=== PATIENT | female | born 1955 | race Caucasian/White ===

== ENCOUNTER 2020-11-02 15:35 | Emergency (ER) | payer MEDICARE, OTHER ==
[2020-11-02 17:48] LABS: BASOPHIL 0.4 % (0-2); EOSINOPHIL 0.5 % (0-7); HCT 45.7 % (37.0-47.0); HGB 15.4 g/dl (12.5-16.0); LYMPHOCYTE 16.7 % (15-48); MCH 28.4 pg (25.0-31.0); MCHC 33.7 g/dL (32.0-36.0); MCV 84.3 fL (78.0-100.0); MONOCYTE 10.3 % (0-12); MPV 9.4 fL (6.0-9.5); NEUTROPHIL 71.8 % (41-80); NRBC 0; PLT 297 K/uL (150-400); RBC 5.42 M/uL (4.20-5.40); RDW 13.5 % (11.5-14.0)
[2020-11-02 18:10] LABS: ALBUMIN 3.4 g/dL (3.4-5.0); BILIRUBIN - TOTAL 0.6 mg/dL (0.2-1.0); BUN/CREAT RATIO (CALC) 13.1 RATIO; CREATININE 1.07 mg/dL (0.51-0.95); GLOBULIN (CALCULATION) 3.7 g/dL; POTASSIUM 3.1 mmol/L (3.5-5.1); TOTAL PROTEIN 7.1 g/dL (6.4-8.2)
[2020-11-02 19:30] LABS: BILIRUBIN NEGATIVE (NEGATIVE); BLOOD TRACE-INTACT Ery/uL (NEGATIVE); CLARITY CLEAR (CLEAR); COLOR YELLOW (YELLOW); GLUCOSE (U) NORMAL (NORMAL); LEUKOCYTES NEGATIVE Leu/uL (NEGATIVE); NITRITE NEGATIVE (NEGATIVE); PROTEIN NEGATIVE (NEGATIVE); UROBILINOGEN 0.2 mg/dL (0.2-1.0); pH 5.5 (5.0-9.0)
[2020-11-02 19:34] LABS: BACTERIA TRACE
== END 2020-11-02 19:59 | disposition home or self-care (01) ==
LOC: FER 15:35
PROVIDERS: Nurse Practitioner Family
DX: R10.32 Left lower quadrant pain (principal); E86.0 Dehydration; E87.6 Hypokalemia; R11.0 Nausea; I10 Essential (primary) hypertension; Z88.0 Allergy status to penicillin; Z79.899 Other long term (current) drug therapy
CPT/HCPCS: 36415; 80053; 81001; 85025; 99284; J7030

== ENCOUNTER 2020-12-20 09:45 | Inpatient (IN) | payer MEDICARE, OTHER ==
[~2020-12-20] VITALS: Ht 152.4 cm; Wt 94.6 kg
[2020-12-20 11:30] LABS: BASOPHIL 0.7 % (0-2); EOSINOPHIL 0.7 % (0-7); HCT 44.2 % (37.0-47.0); HGB 14.6 g/dl (12.5-16.0); LYMPHOCYTE 38.1 % (15-48); MCH 27.5 pg (25.0-31.0); MCV 83.4 fL (78.0-100.0); MONOCYTE 9.3 % (0-12); MPV 9.7 fL (6.0-9.5); NEUTROPHIL 50.2 % (41-80); NRBC 0; PLT 278 K/uL (150-400)
[2020-12-20 11:37] LABS: WBC 2.9 K/uL (4.0-10.5)
[2020-12-20 11:46] LABS: ALBUMIN 2.9 g/dL (3.4-5.0); BILIRUBIN - TOTAL 0.6 mg/dL (0.2-1.0); BUN/CREAT RATIO (CALC) 18.1 RATIO; CREATININE 1.05 mg/dL (0.51-0.95); GLOBULIN (CALCULATION) 3.5 g/dL; POTASSIUM 4.5 mmol/L (3.5-5.1); TOTAL PROTEIN 6.4 g/dL (6.4-8.2)
[2020-12-20 11:53] LABS: PRO-BNP 100 pg/mL (<125)
[2020-12-20] MEDS ORDERED: NORVASC5 MG PO (15:40)
[2020-12-20] MEDS ORDERED: HCTZ25 MG PO (15:41)
[2020-12-20] MEDS ORDERED: CELEBREX **OUT100 MG PO (15:41)
--- NOTE | 2020-12-20 21:26 | NUR ---
PT HAD RUN OF [facility], ASHKAN HARRISON NOTIFIED. WANTS TO MONITOR PATIENT
[2020-12-21 05:46] LABS: BASOPHIL 0.7 % (0-2); EOSINOPHIL 0 % (0-7); HCT 42.4 % (37.0-47.0); HGB 14.1 g/dl (12.5-16.0); LYMPHOCYTE 42.7 % (15-48); MCH 27.3 pg (25.0-31.0); MCHC 33.3 g/dL (32.0-36.0); MCV 82.2 fL (78.0-100.0); MONOCYTE 4.2 % (0-12); MPV 9.8 fL (6.0-9.5); NEUTROPHIL 50.7 % (41-80); NRBC 0; PLT 292 K/uL (150-400); RBC 5.16 M/uL (4.20-5.40); RDW 13.7 % (11.5-14.0)
[2020-12-21 05:50] LABS: WBC 2.9 K/uL (4.0-10.5)
[2020-12-21 06:31] LABS: BUN/CREAT RATIO (CALC) 24.2 RATIO; C-REACTIVE PROTEIN 7.2 mg/dL (<=0.90); CREATININE 0.91 mg/dL (0.51-0.95); POTASSIUM 4.1 mmol/L (3.5-5.1)
[2020-12-22 05:51] LABS: BASOPHIL 0.2 % (0-2); EOSINOPHIL 0 % (0-7); HCT 39.8 % (37.0-47.0); HGB 13.4 g/dl (12.5-16.0); LYMPHOCYTE 26.5 % (15-48); MCH 27.7 pg (25.0-31.0); MCHC 33.7 g/dL (32.0-36.0); MCV 82.4 fL (78.0-100.0); MONOCYTE 6.7 % (0-12); MPV 9.8 fL (6.0-9.5); NEUTROPHIL 65.3 % (41-80); NRBC 0; PLT 364 K/uL (150-400); RBC 4.83 M/uL (4.20-5.40)
[2020-12-22 06:18] LABS: BUN/CREAT RATIO (CALC) 31.3 RATIO; CREATININE 0.99 mg/dL (0.51-0.95); MAGNESIUM 2.2 mg/dL (1.8-2.4); PHOSPHORUS 3.4 mg/dL (2.6-4.7); POTASSIUM 4.3 mmol/L (3.5-5.1)
[2020-12-23 06:58] LABS: BASOPHIL 0.2 % (0-2); EOSINOPHIL 0 % (0-7); HCT 40.1 % (37.0-47.0); HGB 13.2 g/dl (12.5-16.0); MCH 27.2 pg (25.0-31.0); MCHC 32.9 g/dL (32.0-36.0); MCV 82.5 fL (78.0-100.0); MONOCYTE 6.2 % (0-12); MPV 9.8 fL (6.0-9.5); NEUTROPHIL 70.8 % (41-80); NRBC 0; PLT 369 K/uL (150-400); RBC 4.86 M/uL (4.20-5.40); RDW 13.8 % (11.5-14.0); WBC 12.1 K/uL (4.0-10.5)
[2020-12-23 07:03] LABS: LYMPHOCYTE 21.1 % (15-48)
[2020-12-23 07:06] LABS: BUN/CREAT RATIO (CALC) 32.2 RATIO; C-REACTIVE PROTEIN 1.7 mg/dL (<=0.90); CREATININE 0.9 mg/dL (0.51-0.95); POTASSIUM 4.2 mmol/L (3.5-5.1)
[2020-12-23] MEDS ORDERED: DEXAMETHASONE 2M2 MG PO (12:48)
--- NOTE | 2020-12-23 13:19 | NUR ---
12/23/20 Ms. Harding lives at home with her daughter. She was independent in the home and community prior to illness. She is being discharged today. Referrals have been made to [facility] for [facility] and [facility] per patient's choice. Report given to MS Lisandra RN.
== END 2020-12-23 14:59 | disposition home health service (06) | DRG 871 ==
LOC: FER 09:45 → FMS 14:32
PROVIDERS: Emergency Medicine; ADMIT Internal Medicine
PROC: XW033E5 Introduction of Remdesivir Anti-infective into Peripheral Vein, Percutaneous Approach, New Technology Group 5 (ICD-10-PCS; principal; 2020-12-20)
PROC: XW0DXM6 Introduction of Baricitinib into Mouth and Pharynx, External Approach, New Technology Group 6 (ICD-10-PCS; 2020-12-20)
DX: A41.89 Other specified sepsis (principal); U07.1 COVID-19; J96.01 Acute respiratory failure with hypoxia; J12.82 Pneumonia due to coronavirus disease 2019; Z68.41 Body mass index [BMI] 40.0-44.9, adult; R65.20 Severe sepsis without septic shock; I10 Essential (primary) hypertension; E66.9 Obesity, unspecified; Z88.0 Allergy status to penicillin; Z86.19 Personal history of other infectious and parasitic diseases; Z90.89 Acquired absence of other organs; Z98.890 Other specified postprocedural states; Z83.6 Family history of other diseases of the respiratory system; Z82.49 Family history of ischemic heart disease and other diseases of the circulatory system
CPT/HCPCS: 36415; 36600; 71045; 71275; 80048; 80053; 82728; 82803; 83605; 83615; 83735; 83880; 84100; 84145; 84484; 85025; 85379; 86140; 93005; 94010; 94640; C9399; J1100; J1650; J7030; J7050; Q9967

== ENCOUNTER 2021-09-01 17:54 | Emergency (ER) | payer OTHER, MEDICARE ==
[~2021-09-01 17:54] MED LIST: CELEBREX **OUT100 MG PO; DEXAMETHASONE 2M2 MG PO; HCTZ25 MG PO; NORVASC5 MG PO
[2021-09-01 18:36] LABS: BASOPHIL 0.7 % (0-2); HCT 43.5 % (37.0-47.0); HGB 14.5 g/dl (12.5-16.0); LYMPHOCYTE 24.4 % (15-48); MCH 27.8 pg (25.0-31.0); MCHC 33.3 g/dL (32.0-36.0); MCV 83.5 fL (78.0-100.0); MONOCYTE 5.7 % (0-12); MPV 9.7 fL (6.0-9.5); NEUTROPHIL 65.5 % (41-80); NRBC 0; PLT 285 K/uL (150-400); RBC 5.21 M/uL (4.20-5.40); RDW 13.6 % (11.5-14.0); WBC 9.5 K/uL (4.0-10.5)
[2021-09-01 18:51] LABS: BUN/CREAT RATIO (CALC) 13.7 RATIO; CREATININE 0.73 mg/dL (0.51-0.95); POTASSIUM 4.1 mmol/L (3.5-5.1)
[2021-09-01 19:36] LABS: ALT 32 U/L (14-59); AST 47 U/L (15-37); LIPASE 49 U/L (73-393)
[2021-09-02] MEDS ORDERED: NORCO 5-325 TA1 EACH PO (01:43)
== END 2021-09-02 02:22 | disposition home or self-care (01) ==
LOC: FER 17:54
PROVIDERS: Emergency Medicine
DX: S20.211A Contusion of right front wall of thorax, initial encounter (principal); S80.02XA Contusion of left knee, initial encounter; I10 Essential (primary) hypertension; Z88.0 Allergy status to penicillin; Z88.1 Allergy status to other antibiotic agents; V49.40XA Driver injured in collision with unspecified motor vehicles in traffic accident, initial encounter; Z28.310 Unvaccinated for COVID-19
CPT/HCPCS: 36415; 70450; 71260; 72125; 72128; 72131; 73560; 73700; 80048; 83690; 84450; 84460; 85025; J1170; J2405; J7030; Q9967